=== PATIENT | male | born 1955 | race Caucasian/White ===

== ENCOUNTER 2020-11-05 06:09 | Observation (INO) | payer MEDICARE ==
[2020-10-28 11:57] LABS: BASOPHILS % (AUTO) 0.7 % (0.0-5.0); EOSINOPHILS % (AUTO) 4.5 % (0.0-8.0); LYMPHOCYTES % (AUTO) 33.3 % (21.0-51.0); MEAN CORPUSCULAR HEMOGLOBIN 32.6 pg (27.0-33.0); MEAN CORPUSCULAR HGB CONC 34.5 g/dL (32.0-36.0); MEAN CORPUSCULAR VOLUME 94.6 fL (79-99); MONOCYTES % (AUTO) 11.4 % (3.0-13.0); NEUTROPHILS % (AUTO) 49.8 % (40.0-77.0); PLATELET COUNT (AUTO) 243 K/uL (130-400); RED BLOOD CELL COUNT(AUTO) 4.23 MIL/uL (4.50-6.20); RED CELL DISTRIBUTION WIDTH 11.8 % (11.0-15.5)
[2020-10-28 12:08] LABS: INR 0.99 (0.85-1.15); PROTHROMBIN TIME 10.8 SEC (9.6-11.6)
[2020-10-28 12:10] LABS: CREATININE 1.2 mg/dL (0.5-1.5); PARTIAL THROMBOPLASTIN TIME 28.7 SEC (26.3-35.5); POTASSIUM 5.2 mmol/L (3.5-5.1)
[2020-11-04 10:30] VITALS: BP 151/82
[~2020-11-05] VITALS: Ht 182.9 cm; Wt 121.0 kg
[2020-11-05] VITALS (24 sets, daily range): BP systolic 108–147; BP diastolic 61–78
[~2020-11-05 06:09] MED LIST: AMLO-258 PO; CARV25TA PO; CHLO500T3 PO; ENAL20TA18 PO; ESOM40CA54 PO; FURO40TA5 PO; GLYB5TAB8 PO; INSU3INS3 SQ; LIRA0.6P SQ; METF-446 PO; POTA20TA82 PO; SPIR25TA PO
[2020-11-05] MEDS ORDERED: 0.9%NACL 1000ML 1,000 ML IV ONE (06:11)
[2020-11-05] MEDS ORDERED: ROPIVACAINE 0.5% 5MG/ML 30ML IJ ONE (06:55)
[2020-11-05] MEDS ORDERED: SUCCINYLCHOLINE CHLORIDE 20 MG/ML 10 ML VIAL ONE (06:56)
[2020-11-05] MEDS ORDERED: LIDOCAINE PF 100MG/5ML (2%) SYRINGE 5ML ONE (06:56)
[2020-11-05] MEDS ORDERED: ONDANSETRON 4MG INJ ONE (06:56)
[2020-11-05] MEDS ORDERED: MIDAZOLAM HCL 1 MG/ML 2ML VIAL ONE (06:57)
[2020-11-05] MEDS ORDERED: DEXAMETHASONE SOD PHOSPHATE 10MG/ML 1ML VIAL ONE (06:57)
[2020-11-05] MEDS ORDERED: NEOSTIGMINE 5MG/5ML SYR IV ONE (06:57)
[2020-11-05] MEDS ORDERED: ROCURONIUM 10MG/1ML SYR 10 MG/ML ML ONE ×2 (06:57→08:16)
[2020-11-05] MEDS ORDERED: GLYCOPYRROLATE 1 MG/5 ML SYRINGE ONE (06:57)
[2020-11-05] MEDS ORDERED: PROPOFOL 10 MG/ML 20ML VIAL IV ONE ×2 (06:57→07:42)
[2020-11-05] MEDS ORDERED: FENTANYL CITRATE PF 50 MCG/1 ML 2ML VIAL ONE ×2 (06:58→08:23)
[2020-11-05] MEDS: CEFAZOLIN SODIUM 1 GM VIAL ONE ×2 (06:59→07:50)
[2020-11-05] MEDS ORDERED: EPHEDRINE SULFATE 50 MG/ML AMPULE ONE (07:36)
[2020-11-05 07:43] LABS: CREATININE 1.2 mg/dL (0.5-1.5); POTASSIUM 4.4 mmol/L (3.5-5.1)
[2020-11-05] MEDS ORDERED: [UNRECOGNIZED DRUG - OTHER] TP SCH ×5 (07:45)
[2020-11-05] MEDS ORDERED: ROPIVACAINE TP SCH ×5 (07:45)
[2020-11-05] MEDS ORDERED: CLONIDINE TP SCH ×5 (07:45)
[2020-11-05] MEDS: TRANEXAMIC ACID 1000MG/10ML ONE ×2 (08:19→08:24)
[2020-11-05] MEDS ORDERED: TRANEXAMIC ACID 1000MG/10ML ONE (08:20)
[2020-11-05] MEDS ORDERED: PHENYLEPHRINE HCL 10 MG/ML 1ML VIAL IV ONE (08:34)
[2020-11-05] MEDS ORDERED: OXYMETAZOLINE HCL SPRAY 15 ML BOTTLE ONE (08:45)
[2020-11-05] MEDS ORDERED: CHLORZOXAZONE 500 MG PO PRN (10:00)
[2020-11-05] MEDS ORDERED: TRAMADOL HCL 50 MG TABLET PO PRN (10:00)
[2020-11-05] MEDS: ACETAMINOPHEN 500 MG TABLET PO SCH ×2 (10:00→14:30)
[2020-11-05] MEDS ORDERED: ONDANSETRON 4MG INJ IVP PRN (10:00)
[2020-11-05] MEDS ORDERED: FERROUS FUMARATE 324 MG TABLET PO PRN (10:00)
[2020-11-05] MEDS ORDERED: MEPERIDINE-PF 25 MG/ML SYG ONE ×2 (10:40→10:52)
[2020-11-05] MEDS: 0.9%NACL 1000ML 1,000 ML IV SCH ×2 (13:46→21:26)
[2020-11-05] MEDS ORDERED: METFORMIN HCL 500 MG TABLET ONE (14:26)
[2020-11-05] MEDS: KETOROLAC 15MG/ML VIAL (15MG/ML) IV PRN (14:28)
[2020-11-05] MEDS: CEFAZOLIN 3GM /D5W 100ML 100 ML IV SCH ×2 (15:36→23:24)
[2020-11-05] MEDS: METFORMIN HCL 500 MG TABLET PO SCH (15:37)
[2020-11-05] MEDS ORDERED: INSULIN HUMULIN R 100 UNIT/ML 3ML ONE (17:14)
[2020-11-05] MEDS: INSULIN HUMULIN R 100 UNIT/ML 3ML SQ SCH ×2 (17:28→22:01)
[2020-11-05] MEDS ORDERED: SPIRONOLACTONE 25 MG TAB PO SCH (21:00)
[2020-11-05] MEDS: ASPIRIN 81 MG EC TAB PO SCH (21:24)
[2020-11-05] MEDS: OXYCODONE HCL 5 MG TAB PO PRN (21:25)
[2020-11-05] MEDS: CARVEDILOL 25 MG TABLET PO SCH (21:26)
[2020-11-05] MEDS: FAMOTIDINE 20MG TAB PO SCH (21:26)
[2020-11-05] MEDS: INSULIN GLARGINE 100 UNITS/ML 10 ML VIAL SQ SCH (22:02)
[2020-11-06] VITALS (7 sets, daily range): BP systolic 122–150; BP diastolic 70–81
[2020-11-06] MEDS: KETOROLAC 15MG/ML VIAL (15MG/ML) IV PRN ×3 (01:19→22:01)
[2020-11-06] MEDS: ACETAMINOPHEN 500 MG TABLET PO SCH ×4 (01:21→18:00)
[2020-11-06] MEDS: 0.9%NACL 1000ML 1,000 ML IV SCH (03:21)
[2020-11-06 04:01] LABS: HEMATOCRIT 31.5 % (42-54); MEAN CORPUSCULAR HEMOGLOBIN 33.7 pg (27.0-33.0); MEAN CORPUSCULAR HGB CONC 35.9 g/dL (32.0-36.0); RED BLOOD CELL COUNT(AUTO) 3.35 MIL/uL (4.50-6.20); RED CELL DISTRIBUTION WIDTH 11.8 % (11.0-15.5); WHITE BLOOD COUNT (AUTO) 16.2 K/uL (4.8-10.8)
[2020-11-06 04:10] LABS: HEMOGLOBIN A1C 8.2 % (4.0-6.0)
[2020-11-06 04:15] LABS: CREATININE 1.2 mg/dL (0.5-1.5); POTASSIUM 4.5 mmol/L (3.5-5.1)
[2020-11-06] MEDS: INSULIN HUMULIN R 100 UNIT/ML 3ML SQ SCH ×4 (06:27→21:07)
[2020-11-06] MEDS: METFORMIN HCL 500 MG TABLET PO SCH ×2 (08:04→16:55)
[2020-11-06] MEDS: TAMSULOSIN HCL 0.4 MG CAP.ER.24H PO SCH (09:00)
[2020-11-06] MEDS: VICTOZA SQ SCH (09:00)
[2020-11-06] MEDS: MORPHINE 4 MG SYG IVP PRN ×3 (09:40→20:08)
[2020-11-06] MEDS: POLYETHYLENE GLYCOL 3350 17 GM POWD.PACK PO SCH (09:42)
[2020-11-06] MEDS: ENALAPRIL MALEATE 10 MG TABLET PO SCH (09:43)
[2020-11-06] MEDS: AMLODIPINE 5 MG TAB PO SCH (09:43)
[2020-11-06] MEDS: FUROSEMIDE 40 MG TABLET PO SCH (09:44)
[2020-11-06] MEDS: ASPIRIN 81 MG EC TAB PO SCH ×2 (09:44→20:05)
[2020-11-06] MEDS: PANTOPRAZOLE 40 MG TAB DR PO SCH (09:44)
[2020-11-06] MEDS: SPIRONOLACTONE 25 MG TAB PO SCH ×2 (09:45→20:05)
[2020-11-06] MEDS: CARVEDILOL 25 MG TABLET PO SCH ×2 (09:45→20:05)
[2020-11-06] MEDS: FAMOTIDINE 20MG TAB PO SCH ×2 (09:45→20:05)
[2020-11-06] MEDS: OXYCODONE HCL 5 MG TAB PO PRN ×2 (11:00→17:07)
[2020-11-06] MEDS: GLYBURIDE 5 MG TABLET PO SCH (11:47)
[2020-11-06] MEDS: INSULIN GLARGINE 100 UNITS/ML 10 ML VIAL SQ SCH (21:09)
[2020-11-07] MEDS: ACETAMINOPHEN 500 MG TABLET PO SCH ×2 (00:49→10:50)
[2020-11-07 04:00] VITALS: BP 140/71
[2020-11-07] MEDS: INSULIN HUMULIN R 100 UNIT/ML 3ML SQ SCH ×2 (06:08→11:39)
[2020-11-07] MEDS: OXYCODONE HCL 5 MG TAB PO PRN ×2 (06:25→16:01)
[2020-11-07] MEDS: METFORMIN HCL 500 MG TABLET PO SCH (07:24)
[2020-11-07 08:38] VITALS: BP 130/74
[2020-11-07] MEDS: TAMSULOSIN HCL 0.4 MG CAP.ER.24H PO SCH (09:00)
[2020-11-07] MEDS: VICTOZA SQ SCH (09:00)
[2020-11-07] MEDS: SPIRONOLACTONE 25 MG TAB PO SCH (09:40)
[2020-11-07] MEDS: AMLODIPINE 5 MG TAB PO SCH (09:40)
[2020-11-07] MEDS: FUROSEMIDE 40 MG TABLET PO SCH (09:41)
[2020-11-07] MEDS: ASPIRIN 81 MG EC TAB PO SCH (09:41)
[2020-11-07] MEDS: FAMOTIDINE 20MG TAB PO SCH (09:42)
[2020-11-07] MEDS: CARVEDILOL 25 MG TABLET PO SCH (09:42)
[2020-11-07] MEDS: ENALAPRIL MALEATE 10 MG TABLET PO SCH (09:42)
[2020-11-07] MEDS: PANTOPRAZOLE 40 MG TAB DR PO SCH (09:43)
[2020-11-07] MEDS: POLYETHYLENE GLYCOL 3350 17 GM POWD.PACK PO SCH (09:44)
[2020-11-07] MEDS: GLYBURIDE 5 MG TABLET PO SCH (10:49)
[2020-11-07 12:17] VITALS: BP 136/76
== END 2020-11-07 16:42 | disposition home or self-care (01) ==
LOC: DAH 06:09 → DAHIP 06:10 → DAH 06:10 → EDSTATUS 10:00 → 4AH 11:36
PROVIDERS: ADMIT Orthopaedic Surgery; ATTEND Orthopaedic Surgery
DX: M17.11 Unilateral primary osteoarthritis, right knee (principal); Z20.822 Contact with and (suspected) exposure to COVID-19; E11.9 Type 2 diabetes mellitus without complications; E66.9 Obesity, unspecified; I10 Essential (primary) hypertension; Z79.899 Other long term (current) drug therapy
CPT/HCPCS: 27447; 36415 ×3; 73560; 80048 ×3; 80061; 82948 ×10; 83036; 85025; 85027; 85610; 85730; 88305; 88311; 93005; 96361 ×2; 96365; 96366; 96375 ×3; 96376; 97039 ×8; 97116 ×4; 97161; 97530 ×2; A4215; A4221; A4222; A4223 ×2; A4649 ×6; A4663; A4930 ×3; A5120; A9272; C1776 ×2; C9803; G0378 ×52; G8978; G8979; G8980; G8981; G8982; G8983; J0171; J0330; J0690 ×2; J0735; J1100; J1815 ×8; J1885 ×5; J2001; J2175 ×2; J2250; J2270 ×3; J2370; J2405 ×2; J2704 ×2; J2710; J2795 ×2; J3010 ×2; J3490 ×4; J7030 ×2; U0003

== ENCOUNTER 2021-03-09 06:37 | Observation (INO) | payer MEDICARE ==
[2021-03-03 11:49] LABS: BASOPHILS % (AUTO) 0.7 % (0.0-5.0); EOSINOPHILS % (AUTO) 7.3 % (0.0-8.0); HEMATOCRIT 37.2 % (42-54); MEAN CORPUSCULAR HEMOGLOBIN 33.1 pg (27.0-33.0); MEAN CORPUSCULAR HGB CONC 34.7 g/dL (32.0-36.0); MEAN CORPUSCULAR VOLUME 95.4 fL (79-99); MONOCYTES % (AUTO) 9.6 % (3.0-13.0); NEUTROPHILS % (AUTO) 58.2 % (40.0-77.0); PLATELET COUNT (AUTO) 231 K/uL (130-400); RED CELL DISTRIBUTION WIDTH 12.1 % (11.0-15.5)
[2021-03-03 12:03] LABS: POTASSIUM 5.2 mmol/L (3.5-5.1)
[2021-03-03 12:08] LABS: INR 0.99 (0.85-1.15); PROTHROMBIN TIME 10.8 SEC (9.6-11.6)
[2021-03-03 12:09] LABS: PARTIAL THROMBOPLASTIN TIME 29.1 SEC (26.3-35.5)
[2021-03-08 11:24] VITALS: BP 147/75
[~2021-03-09] VITALS: Ht 182.9 cm; Wt 120.7 kg
[2021-03-09] VITALS (26 sets, daily range): BP systolic 122–165; BP diastolic 68–87
[2021-03-09] MEDS: CEFAZOLIN SODIUM 1 GM VIAL IVP SCH ×3 (06:00→18:45)
[~2021-03-09 06:37] MED LIST changes: +ACET-66 PO; +GUAI120015 PO; +GUAI600T50 PO; +LACTATED RINGERS 1000ML 1,000 ML IV SCH; +NAPR220T57 PO; +POTA-202 PO; -POTA20TA82 PO; +ROPIVICAINE 250MG+KETOROLAC 15MG+EPINEPHRINE 0.3+CLONIDINE 80 IV PRN
[2021-03-09] MEDS ORDERED: MORPHINE 4 MG SYG IVP PRN (08:00)
[2021-03-09] MEDS: ACETAMINOPHEN 500 MG TABLET PO SCH ×2 (08:00→15:16)
[2021-03-09] MEDS ORDERED: 0.9%NACL 1000ML 1,000 ML IV ONE (08:00)
[2021-03-09] MEDS: 0.9%NACL 1000ML 1,000 ML IV SCH ×2 (08:00→18:00)
[2021-03-09] MEDS ORDERED: ONDANSETRON 4MG INJ IVP PRN (08:00)
[2021-03-09] MEDS: FAMOTIDINE 20MG TAB PO SCH ×2 (09:00→22:32)
[2021-03-09] MEDS: FUROSEMIDE 40 MG TABLET PO SCH (09:00)
[2021-03-09] MEDS: AMLODIPINE 5 MG TAB PO SCH (09:00)
[2021-03-09] MEDS: CELECOXIB 200 MG CAP PO SCH ×2 (09:00→22:33)
[2021-03-09] MEDS ORDERED: NON-FORMULARY MEDICATION 1 EACH (Metformin HCl 1,000 MG) PO SCH (09:00)
[2021-03-09] MEDS: KCL 20 MEQ ERTAB PO SCH (09:00)
[2021-03-09] MEDS: GLYBURIDE 5 MG TABLET PO SCH ×2 (09:00→21:00)
[2021-03-09] MEDS: POLYETHYLENE GLYCOL 3350 17 GM POWD.PACK PO SCH (09:00)
[2021-03-09] MEDS: LIRAGLUTIDE 18 MG SQ SCH (09:00)
[2021-03-09] MEDS: SPIRONOLACTONE 25 MG TAB PO SCH ×2 (09:00→22:33)
[2021-03-09] MEDS: CARVEDILOL 25 MG TABLET PO SCH ×2 (09:00→22:32)
[2021-03-09] MEDS: ENALAPRIL MALEATE 10 MG TABLET PO SCH ×2 (09:00→22:31)
[2021-03-09] MEDS: ASPIRIN 81 MG EC TAB PO SCH ×2 (09:00→22:33)
[2021-03-09] MEDS ORDERED: INSULIN HUMULIN R 100 UNIT/ML 3ML ONE ×2 (09:24→18:42)
[2021-03-09] MEDS ORDERED: TRANEXAMIC ACID 1000MG/10ML ONE (10:15)
[2021-03-09] MEDS ORDERED: LIDOCAINE PF 100MG/5ML (2%) SYRINGE 5ML ONE (10:18)
[2021-03-09] MEDS ORDERED: MIDAZOLAM HCL 1 MG/ML 2ML VIAL ONE (10:18)
[2021-03-09] MEDS ORDERED: ROCURONIUM 10MG/1ML SYR 10 MG/ML ML ONE (10:18)
[2021-03-09] MEDS ORDERED: SUCCINYLCHOLINE CHLORIDE 20 MG/ML 10 ML VIAL ONE ×2 (10:18→10:20)
[2021-03-09] MEDS ORDERED: GLYCOPYRROLATE 1 MG/5 ML SYRINGE ONE (10:18)
[2021-03-09] MEDS ORDERED: PROPOFOL 10 MG/ML 20ML VIAL IV ONE (10:18)
[2021-03-09] MEDS ORDERED: NEOSTIGMINE 5MG/5ML SYR IV ONE (10:18)
[2021-03-09] MEDS ORDERED: FENTANYL CITRATE PF 50 MCG/1 ML 2ML VIAL ONE ×2 (10:19→11:56)
[2021-03-09] MEDS ORDERED: ATROPINE 1MG SYG IVP ONE (11:16)
[2021-03-09] MEDS ORDERED: ROPIVACAINE 0.5% 5MG/ML 30ML IJ ONE (12:54)
[2021-03-09] MEDS ORDERED: MEPERIDINE-PF 25 MG/ML SYG ONE ×2 (13:49→14:02)
[2021-03-09] MEDS: OXYCODONE HCL 5 MG TAB PO PRN ×2 (15:16→22:31)
[2021-03-09] MEDS ORDERED: DEXTROSE 50%-WATER 50 ML DISP.SYRIN IV PRN (17:00)
[2021-03-09] MEDS: METFORMIN HCL 500 MG TABLET PO SCH (18:45)
[2021-03-09] MEDS: GUAIFENESIN 600 MG TABLET.ER PO SCH (22:31)
[2021-03-09] MEDS: INSULIN HUMULIN R 100 UNIT/ML 3ML SQ SCH (22:55)
[2021-03-09] MEDS: INSULIN GLARGINE 100 UNITS/ML 10 ML VIAL SQ SCH (22:56)
[2021-03-09] MEDS ORDERED: CEFAZOLIN SODIUM 1 GM VIAL ONE (23:53)
[2021-03-10] MEDS: CEFAZOLIN SODIUM 1 GM VIAL IVP SCH (00:30)
[2021-03-10] MEDS: ACETAMINOPHEN 500 MG TABLET PO SCH ×3 (00:31→16:35)
[2021-03-10] MEDS: 0.9%NACL 1000ML 1,000 ML IV SCH (02:20)
[2021-03-10 04:08] VITALS: BP 124/67
[2021-03-10] MEDS: OXYCODONE HCL 5 MG TAB PO PRN ×2 (04:13→09:57)
[2021-03-10 04:56] LABS: MEAN CORPUSCULAR HEMOGLOBIN 32.1 pg (27.0-33.0); MEAN CORPUSCULAR HGB CONC 33.8 g/dL (32.0-36.0); MEAN CORPUSCULAR VOLUME 95.2 fL (79-99); RED BLOOD CELL COUNT(AUTO) 3.36 MIL/uL (4.50-6.20); RED CELL DISTRIBUTION WIDTH 12.2 % (11.0-15.5)
[2021-03-10 05:13] LABS: CREATININE 0.9 mg/dL (0.5-1.5); POTASSIUM 3.8 mmol/L (3.5-5.1)
[2021-03-10] MEDS: INSULIN HUMULIN R 100 UNIT/ML 3ML SQ SCH ×4 (06:46→21:35)
[2021-03-10 07:30] VITALS: BP 162/64
[2021-03-10] MEDS: METFORMIN HCL 500 MG TABLET PO SCH ×2 (08:30→16:54)
[2021-03-10] MEDS: HYDROCODONE/ACETAMINOPHEN 5/325 MG TAB PO PRN ×3 (08:30→21:30)
[2021-03-10] MEDS: GLYBURIDE 5 MG TABLET PO SCH ×2 (09:00→21:29)
[2021-03-10] MEDS: LIRAGLUTIDE 18 MG SQ SCH (09:00)
[2021-03-10] MEDS: ENALAPRIL MALEATE 10 MG TABLET PO SCH ×2 (09:31→21:28)
[2021-03-10] MEDS: POLYETHYLENE GLYCOL 3350 17 GM POWD.PACK PO SCH (09:31)
[2021-03-10] MEDS: AMLODIPINE 5 MG TAB PO SCH (09:32)
[2021-03-10] MEDS: CARVEDILOL 25 MG TABLET PO SCH ×2 (09:32→21:27)
[2021-03-10] MEDS: FUROSEMIDE 40 MG TABLET PO SCH (09:32)
[2021-03-10] MEDS: CELECOXIB 200 MG CAP PO SCH ×2 (09:32→21:26)
[2021-03-10] MEDS: ASPIRIN 81 MG EC TAB PO SCH ×2 (09:32→21:26)
[2021-03-10] MEDS: KCL 20 MEQ ERTAB PO SCH (09:33)
[2021-03-10] MEDS: SPIRONOLACTONE 25 MG TAB PO SCH ×2 (09:33→21:26)
[2021-03-10] MEDS: FAMOTIDINE 20MG TAB PO SCH ×2 (09:33→21:27)
[2021-03-10 11:00] VITALS: BP 175/91
[2021-03-10 16:00] VITALS: BP 121/65
[2021-03-10 20:24] VITALS: BP 129/69
[2021-03-10] MEDS: GUAIFENESIN 600 MG TABLET.ER PO SCH (21:26)
[2021-03-10] MEDS: INSULIN GLARGINE 100 UNITS/ML 10 ML VIAL SQ SCH (21:34)
[2021-03-10 23:58] VITALS: BP 160/82
[2021-03-11] MEDS: ACETAMINOPHEN 500 MG TABLET PO SCH ×3 (00:20→16:59)
[2021-03-11] MEDS: INSULIN HUMULIN R 100 UNIT/ML 3ML SQ SCH ×3 (06:32→16:30)
[2021-03-11 07:30] VITALS: BP 158/84
[2021-03-11] MEDS ORDERED: FUROSEMIDE 20 MG TABLET ONE (08:46)
[2021-03-11] MEDS: POLYETHYLENE GLYCOL 3350 17 GM POWD.PACK PO SCH (08:49)
[2021-03-11] MEDS: FAMOTIDINE 20MG TAB PO SCH (08:49)
[2021-03-11] MEDS: CELECOXIB 200 MG CAP PO SCH (08:50)
[2021-03-11] MEDS: ASPIRIN 81 MG EC TAB PO SCH (08:50)
[2021-03-11] MEDS: HYDROCODONE/ACETAMINOPHEN 5/325 MG TAB PO PRN (08:51)
[2021-03-11] MEDS: AMLODIPINE 5 MG TAB PO SCH (08:51)
[2021-03-11] MEDS: SPIRONOLACTONE 25 MG TAB PO SCH (08:52)
[2021-03-11] MEDS: METFORMIN HCL 500 MG TABLET PO SCH ×2 (08:52→16:59)
[2021-03-11] MEDS: FUROSEMIDE 40 MG TABLET PO SCH (08:52)
[2021-03-11] MEDS: CARVEDILOL 25 MG TABLET PO SCH (08:52)
[2021-03-11] MEDS: GLYBURIDE 5 MG TABLET PO SCH (08:53)
[2021-03-11] MEDS: KCL 20 MEQ ERTAB PO SCH (08:54)
[2021-03-11] MEDS: LIRAGLUTIDE 18 MG SQ SCH (09:04)
[2021-03-11 11:00] VITALS: BP 141/66
[2021-03-11] MEDS ORDERED: ENALAPRIL MALEATE 5 MG TAB ONE ×2 (11:39→11:42)
[2021-03-11] MEDS: ENALAPRIL MALEATE 10 MG TABLET PO SCH (11:53)
[2021-03-11] MEDS: OXYCODONE HCL 5 MG TAB PO PRN ×2 (11:59→17:01)
[2021-03-12] MEDS ORDERED: BISACODYL 10 MG SUPP.RECT RC PRN (08:00)
== END 2021-03-11 18:50 | disposition home or self-care (01) ==
LOC: DAH 06:37 → DAHIP 06:38 → 3AH 15:04
PROVIDERS: ADMIT Orthopaedic Surgery; ATTEND Orthopaedic Surgery
DX: M17.12 Unilateral primary osteoarthritis, left knee (principal); Z20.822 Contact with and (suspected) exposure to COVID-19; M25.561 Pain in right knee; I10 Essential (primary) hypertension; E11.9 Type 2 diabetes mellitus without complications; R11.2 Nausea with vomiting, unspecified; E66.9 Obesity, unspecified; Z79.4 Long term (current) use of insulin; Z68.36 Body mass index [BMI] 36.0-36.9, adult; Z79.82 Long term (current) use of aspirin
CPT/HCPCS: 27447; 36415 ×2; 80048 ×2; 82948 ×11; 85025; 85027; 85610; 85730; 87635; 87641; 88305; 88311; 93005; 96361 ×2; 96374; 96376; 97039 ×3; 97116 ×4; 97161; 97530 ×3; A4215; A4221; A4222; A4223; A4600; A4649 ×6; A4663; A4930 ×3; A5120; A6212; C1776; C9803; G0378 ×54; J0171; J0330 ×2; J0461; J0690 ×3; J0735; J1815 ×6; J1885; J2001; J2175 ×2; J2250; J2704; J2710; J2795 ×2; J3010 ×2; J3490 ×2; J7030 ×3; J7040; 96372

== ENCOUNTER → 2022-05-30 | Outpatient (CLI) | payer MEDICARE ==
[~2022-05-30] MED LIST changes: -LACTATED RINGERS 1000ML 1,000 ML IV SCH; -ROPIVICAINE 250MG+KETOROLAC 15MG+EPINEPHRINE 0.3+CLONIDINE 80 IV PRN
== END | disposition home or self-care (01) ==
LOC: RAH 14:23
PROVIDERS: ATTEND Family Medicine
DX: E04.2 Nontoxic multinodular goiter (principal); R22.1 Localized swelling, mass and lump, neck
CPT/HCPCS: 76536

== ENCOUNTER → 2022-11-29 | Outpatient (CLI) | payer MEDICARE ==
[~2022-11-29] MED LIST changes: +ENAL-91 PO; -ENAL20TA18 PO
== END | disposition home or self-care (01) ==
LOC: RAH 11:10
PROVIDERS: ATTEND Internal Medicine Endocrinology, Diabetes & Metabolism
DX: E04.2 Nontoxic multinodular goiter (principal)
CPT/HCPCS: 76536

== ENCOUNTER → 2022-12-15 | Outpatient (CLI) | payer MEDICARE | END | disposition home or self-care (01) | LOC: RAH 10:00 | PROVIDERS: ATTEND Family Medicine | DX: K80.20 Calculus of gallbladder without cholecystitis without obstruction (principal); R19.7 Diarrhea, unspecified | CPT/HCPCS: 76700 ==

== ENCOUNTER → 2023-11-28 | Outpatient (CLI) | payer MEDICARE ==
[~2023-11-28] MED LIST changes: -ESOM40CA54 PO; +ESOM40CA66 PO
== END | disposition home or self-care (01) ==
LOC: RAH 12:47
PROVIDERS: ATTEND Internal Medicine Endocrinology, Diabetes & Metabolism
DX: E04.2 Nontoxic multinodular goiter (principal)
CPT/HCPCS: 76536